=== PATIENT | female | born 2000 | race Caucasian/White ===

== ENCOUNTER 2024-06-05 17:00 | Inpatient (IN) | payer BC, SELFPAY ==
[2024-06-05 13:09] VITALS: BP 139/77
[2024-06-05 13:43] LABS: Hematocrit 39.3 % (37.0-47.0); Mean Corp Hgb Conc. 35.6 g/dL (33.0-37.0); Mean Corpuscular Hgb 29.1 pg (27.0-31.0); Mean Corpuscular Volume 81.7 fL (81.0-99.0); Mean Platelet Volume 8.9 fL (7.4-10.4); Platelet Count 198 10^3/uL (130-400); Red Blood Cell Count 4.81 10^6/uL (4.20-5.40); Red Cell Dist. Width 13.3 % (11.5-14.5); White Blood Cell Count 9.1 10^3/uL (4.8-10.8)
[2024-06-05 13:51] LABS: AST (SGOT) 610 U/L (14-36); Albumin 4.9 g/dl (3.5-5.0); Alkaline Phosphatase 462 U/L (38-126); Blood Urea Nitrogen 9 mg/dl (7-17); Carbon Dioxide 17 mmol/L (22-30); Chloride 103 mmol/L (98-107); Glucose 95 mg/dl (70-99); Lipase 100 U/L (23-300); Sodium 137 mmol/L (135-145); Total Bilirubin 5.8 mg/dl (0.2-1.3); Total Protein 8.5 g/dl (6.3-8.2); eGFR > 60.00
[2024-06-05 13:55] LABS: % Basophils 0.9 % (0-2); % Immature Granulocytes 1.2 % (0-0.5); % Lymphocytes 60.2 % (20.5-51.1); % Monocytes 4.2 % (1.7-9.3); % Neutrophils 33.5 % (42.2-75.2); Absolute Basophils 0.1 10^3/uL (0-0.2); Absolute Immature Granulocytes 0.1 10^3/uL (0-0.05); Absolute Lymphocytes 5.5 10^3/uL (1.2-3.4); Absolute Monocytes 0.4 10^3/uL (0.1-0.6); Absolute Neutrophils 3.1 10^3/uL (1.4-6.5); Nucleated Red Blood Cells % 0 %
--- NOTE | 2024-06-05 14:21 | ED.GENMED ---
History of Present Illness
General
Chief Complaint: Abdominal Pain
Source: patient
Exam Limitations: none
Time Seen by Provider: 06/05/24 14:05
History of Present Illness
History of Present Illness:
See MDM
Past History
Past History
ED Past Medical History: Psychiatric
ED Past Surgical History: None
Social History
Tobacco: Non-smoker
Alcohol: None
Phy Exam
Physical Exam
Physical Exam:
See MDM
Course
Orders/Labs/Results
Orders:
Orders
06/05/24 13:25
Complete Blood Count/With Diff Urgent
Comprehensive Metabolic Panel Urgent
Lipase Urgent
06/05/24 14:19
0.9% Sodium Chloride 1000 ml [Nss] 1,000 ml IV BOLUS
Ketorolac [Toradol] 30 mg IV NOW STA
Ondansetron Injectable [Zofran] 4 mg IV NOW STA
US Abdomen Complete/Upper Urgent
Comment:
Reason For Exam: RUQ pain
Abnormal Lab Results
06/05/24
13:25
Abs Immat Gran (auto) 0.1 H 10^3/uL
(0-0.05)
Absolute Lymphs (auto) 5.5 H 10^3/uL
(1.2-3.4)
Immature Gran % 1.2 H %
(0-0.5)
Neutrophils % 33.5 L %
(42.2-75.2)
Lymphocytes % 60.2 H %
(20.5-51.1)
Carbon Dioxide 17 L mmol/L
(22-30)
Total Bilirubin 5.8 H mg/dl
(0.2-1.3)
AST 610 H* U/L
(14-36)
ALT 808 H* U/L
(0-35)
Alkaline Phosphatase 462 H U/L
(38-126)
Total Protein 8.5 H g/dl
(6.3-8.2)
06/05/24 13:25
06/05/24 13:25
Vital Signs
Initial and Last Documented VS:
Initial Vital Signs
Temp Pulse Resp BP Pulse Ox
99.2 F 105 16 139/77 99
06/05/24 13:09 06/05/24 13:09 06/05/24 13:09 06/05/24 13:09 06/05/24 13:09
Last Documented Vital Signs
Temp Pulse Resp BP Pulse Ox
99.2 F 105 16 139/77 99
06/05/24 13:09 06/05/24 13:09 06/05/24 13:09 06/05/24 13:09 06/05/24 13:09
MDM/Problems Addressed
Differential Diagnosis Includes:
HPI and MDM Narrative:
23-year-old female presenting for evaluation of abdominal pain. This has been ongoing for the past week or so. This is associate with nausea. She has noted dark urine. On my assessment, blood work has already been obtained showing elevated
bilirubin and LFTs. She denies excessive alcohol or Tylenol use. Given her abdominal pain and her LFTs, will obtain ultrasound with concern for acute calculus cholecystitis or possibly choledocholithiasis
Physical exam
General: Well appearing and non-toxic
HEENT: protecting airway
Neck: appears supple
CV: No evidence of cyanosis
Resp: No accessory muscle use
Abd: Non-distended. Mild right upper quadrant and right lower quadrant tenderness
Extremities: No deformities
Neuro: alert
Psych: Normal affect
Skin: Intact
Problems Addressed including Acute and Chronic Conditions affecting care:
1. Abdominal pain with elevated LFTs
Acuity: acute
Prognosis: stable
Details: Will obtain ultrasound
Updates
Ultrasound negative. Will admit for MRCP versus possible CT
Differential Diagnosis (but not limited to): Acute calculus cholecystitis, choledocholithiasis, acute appendicitis
Testing considered: CT abdomen/pelvis will obtain ultrasound first with concern for gallbladder pathology
Drug therapy (if applicable): OTC meds, please see d/c instruction regarding Rx drugs
Amount and/or Complexity of Data Reviewed
Clinical info obtained from: Patient
External data reviewed: N/A
Labs I independently reviewed (but not limited to): Elevated LFTs and bilirubin
Radiology: Ultrasound report reviewed
Pulse Ox: not hypoxic
EKG independently reviewed: N/A
Stripper Shovel Operator: N/A
Critical Care: N/A
Risk of Complication:
Social Determinants of health: Good social support
Discussed with other providers: Hospital
Escalation of Care includes Admit/Obs: Given the elevated LFTs and abdominal pain, will admit for further evaluate
Occasional wrong word or 'sound a like' substitutions may have occurred due to the inherent limitations of voice recognition software. Read the chart carefully and recognize, using context, where substitutions have occurred.
*Critical Care Note
Total Time (30-74mins, 75-104mins- exclusive of procedures): Not Applicable
ED Attending Note
-
Portions of this chart may have been created with voice recognition software.� Occasional wrong word or��sound alike� substitutions may have occurred due to the inherent limitations of voice recognition software.
Discharge Plan
Departure
Patient Disposition: Admit
Date of Disposition: 06/05/24
Time of Disposition: 16:00
Admit to: Med/Surg
Presentation/result/management discussed w/ accepting MD/DO: Hospitalist
Discharge Problem:
Elevated LFTs
Prescriptions:
No Action
acetaminophen [Tylenol] 325 mg Tablet
650 mg PO Q6HPRN PRN (Reason: mild pain)
sertraline 100 mg Tablet
100 mg PO QPM
ibuprofen [Advil] 200 mg Tablet
400 mg PO Q6HPRN PRN (Reason: mild pain)
Referrals:
Michelle Carter CRNP [Family Provider] -
Interventions
Interventions:
*Risk Screen - Suicide Last Done: 06/05/24 14:30
*General Assessment Last Done: 06/05/24 14:30
*Neglect/Abuse Screening Last Done: 06/05/24 14:30
*ED COVID-19 Vaccine History Last Done: 06/05/24 14:30
[facility] Assessment Last Done: 06/05/24 14:30
Discharge Date and Time
Print Language: GREENLANDIC
[2024-06-05 14:37] LABS: ALT (SGPT) 808 U/L (0-35)
[2024-06-05] MEDS: TORADOL 30 MG IV (14:38)
[2024-06-05] MEDS: NSS 1000 IV ×2 (14:38→20:45)
[2024-06-05] MEDS: ZOFRAN 4 MG IV ×2 (14:38→20:46)
--- NOTE | 2024-06-05 16:07 | HPS.HSE ---
Family Physician
-
Family Physician: AMADA Peter
Chief Complaint
-
Abdominal pain x 1 week with nausea
History of Present Illness
23-year-old female complaining lower abdominal pain starting last 06/25/2025 associated with low-grade fever 102 Tmax 101F. She reports she was taking Tylenol 1000 mg every 6 hours x 3 days totaling 4000 mg/day x 3 days along with Advil
200 mg 3 times daily. She reports initially she had abdominal pain in her lower abdomen that she contributed to having her. She had some slight nausea for which she took Pepto-Bismol on 06/26/2024. She states after 3 days her fever
went away and then the abdominal pain became a generalized pain with a full sensation. She states she was unable to keep down any solid foods and she has only been able to have sips of water for the past 2 days. She also reports he has been unable
to take her Zoloft as she has not was afraid to take it on an empty stomach. She denies alcohol use. She reports she uses medical marijuana vapes it for anxiety. She denies headache, sore throat, chest pain, palpitations, shortness of breath,
cough, diarrhea, raw foods. In the ER her labs are showing acute transaminitis.
Medical History
Past Medical History
Past Medical History: Reports Other
Additional Past Medical History:
Anxiety
Renee-Danlos syndrome
Past Surgical History: Reports Other
Additional Past Surgical History:
Right knee ligament repair x 2 right collateral ligament and patellar ligament right knee
[place] teeth extraction
Social History
Tobacco: Vaping
Alcohol: None
Drug: Marijuana (Vapes)
Personal: Single
Living: With Roomate
Family History
Family History: Other (Mother 50s valvular heart issue, father 60s alcohol abuse 2 sisters healthy living)
Allergies / Home Medications
Allergies reflects when Allergies were last updated in [facility].
Home Medications with original date entered in [facility]
Allergy/Medication List:
Allergies
Allergy/AdvReac Type Severity Reaction Status Date / Time
wasps Allergy Swelling Uncoded 06/05/24 13:08
Home Medications
acetaminophen 325 mg tablet (Tylenol) 650 mg PO Q6HPRN PRN mild pain 06/05/24
ibuprofen 200 mg tablet (Advil) 400 mg PO Q6HPRN PRN mild pain 06/05/24
sertraline 100 mg tablet 100 mg PO QPM 06/05/24
Review of Systems
-
History Source: Patient
A 12 point ROS was completed and negative except as noted: Yes
Constitutional: Reports Fever (1 week ago); Denies Chills
EENT: Denies Sore Throat or Runny Nose
Respiratory: Denies Cough or Trouble Breathing
Cardiac: Denies Chest Pain, Diaphoresis, Palpitations or Syncope
Abdomen/GI: Reports Abdominal Pain, Nausea and Vomiting; Denies Diarrhea, Constipated, Bloody Stools or Black Stools
: Denies Dysuria, Frequency, Flank Pain, Incontinence, Difficulty Voiding, Urgency or Bleeding
Musculoskeletal: Denies Joint Pain, Joint Swelling or Edema
Skin: Denies Itching or Rash
Neurological: Denies Dizzy, Headache or Weakness
Endocrine: Reports No Symptoms
Hematologic/Lymphatic: Reports No Symptoms
Psych: Reports Calm (To slightly anxious)
Physical Exam
Vital Signs
Vital Signs
Temp Pulse Resp BP Pulse Ox
99.2 F 105 16 139/77 99
06/05/24 13:09 06/05/24 13:09 06/05/24 13:09 06/05/24 13:09 06/05/24 13:09
Physical Exam
General: Conversant; No Pain, Fever or Chills
HEENT: NormoCephalic, Anicteric, Moist mucous membranes, PERRLA, Tolstoy Conjunctivae and No Ptosis
Respiratory: Clear; No Wheezes, Rales or Rhonchi
Cardiac: S1/S2 and Regular Rhythm; No Murmur, Rub, Gallop or Peripheral Edema
Breast: Deferred by me
GI: Soft, Non Distended, Normal Bowel Sounds, Tender (Slight tenderness left and right upper quadrants, no rebound tenderness) and No Hepatosplenomegaly
Rectal: Deferred by Provider
Musculoskeletal: No Clubbing, No Cyanosis and No Edema
Skin: Warm and Dry; No Rash
Neuro: AO x 3, No Motor Deficits, Nonfocal/grossly intact, Cranial Nerves Intact and No Sensory Deficits; No Slurred Speech, Facial Droop or Tremors
Psych: Calm
Laboratory Results
-
06/05/24 13:25
06/05/24 13:25
Laboratory Results
Total Bilirubin 5.8 mg/dl (0.2-1.3) H 06/05/24 13:25
AST 610 U/L (14-36) H* 06/05/24 13:25
ALT 808 U/L (0-35) H* 06/05/24 13:25
Alkaline Phosphatase 462 U/L (38-126) H 06/05/24 13:25
Lipase 100 U/L (23-300) 06/05/24 13:25
Data Reviewed
-
Ultrasound: Report Reviewed by me
Lab Data: Labs Reviewed by me
Impression/Plan
-
Impression/plan:
Admit to MedSurg
#Acute transaminitis with right upper quadrant abdominal pain concern for choledocholithiasis
-N.p.o.
-IV NSS 1 L given in ER, continue IV NSS 100 cc an hour
-IV Toradol given in ER will continue for pain
-IV Zofran as needed
-MRCP with and without contrast
-Check Tylenol level, INR, hCG, hepatitis panel, blood culture x 1
-IV Zosyn
-Consult GI
-Follow CBC, CMP
Abdominal ultrasound: 1. No evidence of cholelithiasis, gallbladder wall thickening or biliary tract dilatation.
2. Mild splenomegaly and borderline hepatomegaly.
3. Pancreas, abdominal aorta and IVC significantly obscured, most likely by overlying bowel gas.
#Anxiety
-cont Zoloft
-Patient uses medical marijuana
#Nicotine abuse
-Patient vapes
-Cessation advised
-Will apply nicotine patch
#History Renee-Danlos syndrome
-Ligament repairs to right knee x 2
DVT prophylaxis
SCDs
Full code
--- NOTE | 2024-06-05 17:09 | W.PN.UPDATE ---
Update Note
Progress Note Update
This is an addendum to the H&P written by Ally James on 06/05/2024.� Patient seen examined independently with TEACHER AIDE.
23-year-old female past medical history of Erlos Danlos, anxiety/depression presenting with generalized abdominal pain over the past week associate with nausea and vomiting and dark urine.� She had fever up to 101 a few days ago.
Tachycardic on examination.� Labs show transaminitis with hyperbilirubinemia.� Abdominal ultrasound without evidence of cholelithiasis, gallbladder wall thickening or biliary tract dilatation.� Concern for choledocholithiasis.� Check Hepatitis
serologies,�PT/INR, Tylenol level.� Clear liquid diet, Zosyn, MRCP, GI consulted.
[2024-06-05 17:25] VITALS: BMI 43.3
[2024-06-05 17:38] LABS: Acetaminophen < 10 ug/ml (10-30)
[2024-06-05 17:40] LABS: INR 1.11; PT 14.2 Sec (11.4-14.6)
[2024-06-05] MEDS: ZOSYN 50 IV ×2 (18:08→23:41)
[2024-06-05 18:42] LABS: HCG, Serum Qualitative Screen Negative
[2024-06-05 18:57] VITALS: BP 124/76; BMI 32.4
[2024-06-05] MEDS: TORADOL 10 MG IV (20:45)
[2024-06-05] MEDS: ZOLOFT PO (20:45)
--- NOTE | 2024-06-05 21:00 | PTCARENOTE ---
Receive pt from ER. Pt alert oriented X3, doesn't seem in distress. Pt oriented to the room, call moody within reach. Pt complains about nausea, headache and abd pain, but mostly bother by nausea and headache. VSS (T=97.3, HR=84, RR=18, GX=464/76,
SpO2=98% on RA). Zofran given for nausea and Toradol given for pain as per order, IVFs infusing. Will continue to monitor the pt.
[2024-06-05 23:00] VITALS: BP 118/70
[2024-06-06] MEDS: ZOSYN 50 IV ×3 (05:16→17:07)
[2024-06-06 07:00] VITALS: BP 97/54
[2024-06-06] MEDS: NSS 1000 IV ×2 (07:34→17:07)
[2024-06-06] MEDS: ZOFRAN 4 MG IV (08:06)
[2024-06-06 08:33] LABS: ALT (SGPT) 688 U/L (0-35); AST (SGOT) 627 U/L (14-36); Albumin 3.9 g/dl (3.5-5.0); Alkaline Phosphatase 383 U/L (38-126); Blood Urea Nitrogen 9 mg/dl (7-17); Calcium 8.9 mg/dl (8.4-10.2); Carbon Dioxide 15 mmol/L (22-30); Chloride 107 mmol/L (98-107); Estimated Creatinine Clearance 125 ml/min; Glucose 81 mg/dl (70-99); HDL Cholesterol 42 mg/dl; LDL Cholesterol, Calculated 102 mg/dl; Potassium 4.3 mmol/L (3.5-5.1); Sodium 141 mmol/L (135-145); Total Bilirubin 5.8 mg/dl (0.2-1.3); Total Cholesterol 173 mg/dl (50-199); Total Protein 7.3 g/dl (6.3-8.2); Triglyceride 146 mg/dl (10-149); Very Low Density Lipoprotein 29 mg/dl (0-30); eGFR > 60.00
[2024-06-06 08:38] LABS: % Basophils 0.9 % (0-2); % Eosinophils 0.1 % (0-6); % Lymphocytes 68.2 % (20.5-51.1); % Monocytes 5.5 % (1.7-9.3); % Neutrophils 24.3 % (42.2-75.2); Absolute Basophils 0.1 10^3/uL (0-0.2); Absolute Immature Granulocytes 0.1 10^3/uL (0-0.05); Absolute Lymphocytes 4.8 10^3/uL (1.2-3.4); Absolute Monocytes 0.4 10^3/uL (0.1-0.6); Absolute Neutrophils 1.7 10^3/uL (1.4-6.5); Hematocrit 37.9 % (37.0-47.0); Hemoglobin 13.1 g/dL (12.0-16.0); Mean Corp Hgb Conc. 34.6 g/dL (33.0-37.0); Mean Corpuscular Hgb 28.8 pg (27.0-31.0); Mean Corpuscular Volume 83.3 fL (81.0-99.0); Mean Platelet Volume 9.1 fL (7.4-10.4); Nucleated Red Blood Cells % 0 %; Platelet Count 158 10^3/uL (130-400); Red Blood Cell Count 4.55 10^6/uL (4.20-5.40); Red Cell Dist. Width 13.4 % (11.5-14.5); White Blood Cell Count 7.1 10^3/uL (4.8-10.8)
[2024-06-06 08:40] VITALS: BP 97/54
--- NOTE | 2024-06-06 09:09 | CON.GI ---
Addendum entered and electronically signed by Rachel Longoria DO 06/06/24 12:15:
patient seen and examined independently of AMADA. I agree with her note with my additions below.
Marisa is a 23yoF with hx of anxiety/depression on Zoloft only (since Sep), EDS, father with suspected alcoholic liver disease presents with 1 wk of intermittent fevers, malaise, mild nausea without vomiting, abdominal bloating and fullness, but no
significant pain admitted with mixed hepatocellular, cholestatic liver injury with a bili of 5.8.
Patient denies ever having abnormal LFTs in the past, but unsure if they've ever been checked.
Lost about 6lbs over the past week due to decreased appetite. No one else with any similar sickness. Denies any herbals, supplements other than vit D. Does vape nicotine and marijuana.
No diarrhea. Due to malaise taking APAP/NSAIDs but tylenol level undetectable.
Denies any unusual bites, rashes.
Very rare alcohol.
U/S done shows no ductal dil. Was given empiric zosyn now.
Coags normal, no leukocytosis.
Overall - mixed liver injury with normal coags and minimal pain and normal U/S
-- sounds viral, less likely CBD stone
-- MRI/MRCP
-- hepatitis and mono testing
-- if those are negative would proceed to more extensive liver workup
-- daily MELD labs
-- diet as tolerated after MRI done
- -avoid APAP or other hepatotoxic medications
Original Note:
Consultation
-
Date/Time Consultation Requested: 06/05/24 @ 16:46
Date/Time Consultation Performed: 06/06/24 @ 09:00
Requesting Provider: AMADA Mcdaniel
Performing Provider: AMADA Javier; Dr. Rachel Longoria
Reason for Consultation: Acute transaminitis, hyperbilirubinemia
Medical History
Chief Complaint / HPI
Chief Complaint: abdominal pain, nausea
History of Present Illness:
The patient is a 23-year-old female with a past medical history significant for anxiety, depression, Renee-Danlos syndrome, who presents to the emergency room with complaints of abdominal pain, fevers, and nausea, which we are being asked to
evaluate for. The patient reports that for the last week she had not been feeling well. She was having fevers and chills and thought maybe she had COVID although testing was negative. The last 3 days she has had nausea persistently without
vomiting and abdominal pain generalized throughout her abdomen. She notes that she has not been eating and drinking as well given her ongoing symptoms, therefore has been mildly constipated. She denies any congestion or cough but has felt somewhat
short of breath. She also noticed that her urine was a dark color, but did not notice any jaundice or yellowing of her eyes. She denies any unintentional weight loss, chest pain, heartburn, or reflux symptoms. She has been using Advil/ibuprofen
and alternating with Tylenol to control her fever and pain symptoms. She does note that in August she saw her PCP for persistent hiccups and was placed on acid reducing medications but ultimately did not find a solution or cause for this. She
does report daily marijuana use for her anxiety. She reports very rare alcohol use she denies history of IV drug use. She denies any new medications or recent antibiotics. She denies any recent travel. She denies any history of liver disease.
She reports her father was a heavy alcoholic and did from liver disease. She denies any prior history of gastrointestinal diseases or problems. She has never had an endoscopy or colonoscopy. Upon labs in the ER, total bilirubin was 5.8, AST
16, ALT 808, alk phos 462, lipase 100, Tylenol less than 10. Ultrasound of the abdomen was unrevealing for any gallbladder etiology or biliary ductal dilation. She was placed on IV Zosyn given her intermittent fevers, made n.p.o., pending MRCP and
GI evaluation.
Past Medical History
Past Medical History: Psychiatric (Anxiety/depression) and Other (Renee-Danlos syndrome)
Past Surgical History: Orthopedic (Multiple knee surgeries for ligament repair) and Other ([place] teeth extraction)
Social History
Tobacco: Vaping
Alcohol: Other (Rare alcohol use)
Drug: Marijuana (Medical)
Living: With Roomate
Family History
Family History: Other (Father of alcoholic liver disease)
Allergies / Home Medications
Allergy/AdvReac Type Severity Reaction Status Date / Time
wasps Allergy Swelling Uncoded 06/05/24 13:08
�Medication �Instructions �Recorded
acetaminophen 325 mg tablet 650 mg PO Q6HPRN PRN mild pain 06/05/24
(Tylenol)
ibuprofen 200 mg tablet (Advil) 400 mg PO Q6HPRN PRN mild pain 06/05/24
sertraline 100 mg tablet 100 mg PO QPM 06/05/24
Review of Systems
-
History Source: Patient
Constitutional: Reports Fever and Chills
EENT: Reports No Symptoms
Respiratory: Reports Other (Shortness of breath)
Cardiac: Reports No Symptoms
Abdomen/GI: Reports Abdominal Pain and Nausea
: Reports Dark Urine
Musculoskeletal: Reports No Symptoms
Skin: Reports No Symptoms
Neurological: Reports No Symptoms
Endocrine: Reports No Symptoms
Hematologic/Lymphatic: Reports No Symptoms
Vital Signs
Temp Pulse Resp BP Pulse Ox
98.2 F 69 16 97/54 99
06/06/24 07:00 06/06/24 07:00 06/06/24 07:00 06/06/24 07:00 06/06/24 07:00
Physical Exam
Exam
General: Well Developed, Well Nourished and No Apparent Distress
HEENT: Normocephalic, Anicteric and Atraumatic
Respiratory: Clear
Cardiac: S1/S2 and Regular Rhythm
Breast: Deferred by me
GI: Soft, Non Distended, Normal Bowel Sounds and Tender (RUQ/RLQ)
Rectal: Deferred by Provider
Musculoskeletal: No Edema
Skin: Warm, Dry and Other (pale appearing, no jaundice)
Neuro: Awake, Alert and Oriented
Psych: Calm
Results
WBC 7.1 10^3/uL (4.8-10.8) 06/06/24 07:46
Hgb 13.1 g/dL (12.0-16.0) 06/06/24 07:46
Hct 37.9 % (37.0-47.0) 06/06/24 07:46
MCV 83.3 fL (81.0-99.0) 06/06/24 07:46
Plt Count 158 10^3/uL (130-400) D 06/06/24 07:46
Absolute Neuts (auto) 1.7 10^3/uL (1.4-6.5) 06/06/24 07:46
PT 14.2 Sec (11.4-14.6) 06/05/24 17:23
INR 1.11 06/05/24 17:23
Sodium 141 mmol/L (135-145) 06/06/24 07:46
Potassium 4.3 mmol/L (3.5-5.1) 06/06/24 07:46
Chloride 107 mmol/L (98-107) 06/06/24 07:46
Carbon Dioxide 15 mmol/L (22-30) L 06/06/24 07:46
BUN 9 mg/dl (7-17) 06/06/24 07:46
Creatinine 0.9 mg/dL (0.6-1.0) 06/06/24 07:46
Calcium 8.9 mg/dl (8.4-10.2) 06/06/24 07:46
Total Bilirubin 5.8 mg/dl (0.2-1.3) H 06/06/24 07:46
AST 627 U/L (14-36) H* 06/06/24 07:46
ALT 688 U/L (0-35) H* 06/06/24 07:46
Alkaline Phosphatase 383 U/L (38-126) H 06/06/24 07:46
Lipase 100 U/L (23-300) 06/05/24 13:25
Hepatitis A Ab Total Cancelled 06/05/24 17:23
Hep Bs Antibody Cancelled 06/05/24 17:23
Hepatitis C Antibody Cancelled 06/05/24 17:23
Diagnostic Image Results:
06/05/24 Us abdomen: No evidence of cholelithiasis, gallbladder wall thickening or biliary tract dilatation. Mild splenomegaly and borderline hepatomegaly. Pancreas, abdominal aorta and IVC significantly obscured, most likely by overlying bowel gas.
Prior GI Procedures:
EGD: none
Colonoscopy: none
Assessment / Plan
-
The patient is a 23-year-old female with a past medical history significant for anxiety, depression, Renee-Danlos syndrome, who presents to the emergency room with complaints of abdominal pain, fevers, and nausea, found to have significantly
elevated liver enzymes concerning for possible choledocholithiasis, although with unrevealing ultrasound of the abdomen. She has had ongoing systems, feeling unwell for the past week with nausea and abdominal pain the last 3 days with associated
fevers and chills. She has no history of liver disease or gallbladder disease. She had been taking [id number] NSAIDs and Tylenol for her symptoms. She denies alcohol use. MRCP pending this morning. Her liver enzymes are persistently
elevated.
Problem list:
-Elevated LFT
-Right upper quadrant pain
-Nausea
-Fevers
-Chronic medical marijuana use for anxiety
Other pertinent medical history:
-Renee-Danlos syndrome
-Anxiety/depression on sertraline
Recommendations:
-Etiology of current symptoms possibly secondary to biliary etiology such as choledocholithiasis versus viral etiology versus other infectious etiology versus other.
-Agree with MRCP for further evaluation to rule out stone given her right upper quadrant pain and LFT pattern
-Will add Monospot and Juancarlos-Palomo virus given her fevers and viral type symptoms.
-Await hepatitis serologies
-Avoid hepatotoxins
-Trend LFTs
-Clear liquid, advance diet as tolerated
-IV antibiotics as per primary team with Ivette
-Continue supportive care
-Monitor for fevers
-Further management pending above
Data Reviewed
-
Ultrasound: Report Reviewed by me
-
-
Thank you for consultation and allowing me to participate in the patient's care. Please call the marketing sales consultant GI physician during the after hours with any questions or concerns.
--- NOTE | 2024-06-06 09:36 | W.PN.HOSP.TC ---
Today's Communication/Plan
-
see A/P
Assessment / Plan
Assessment / Plan
HPI: 23-year-old female past medical history of Erlos Danlos, anxiety/depression; p/w generalized abdominal pain for the past week associated with nausea, vomiting and dark urine.�She also had fever up to 101 a few days ago.
A/P:
# R sided abdominal pain
# transaminitis with hyperbilirubinemia.�
Abdominal ultrasound without evidence of cholelithiasis, gallbladder wall thickening or biliary tract dilatation.�
Since there is concern for choledocholithiasis/cholangitis (fever at home), check MRCP
follow blood culture, cont Zosyn,
GI consult
Follow hepatitis serologies, Check UDS
Cont clear liquid diet,
Cont IVF support
Tylenol level negative (checked due to reported history of recent excessive Tylenol use for abdominal pain)
# Anxiety
cont Zoloft
Patient uses medical marijuana
Check UDS
# Nicotine abuse
Patient vapes
Cessation advised
nicotine patch
# History Renee-Danlos syndrome
DVT prophylaxis: SCDs
Full code
DW pt's girlfriend at bedside
Anticipated Discharge: > 48 hours
Subjective/Interval History
-
Date of Service: June 06, 2024
Objective Data
-
Labs:
Laboratory Results
06/06/24
07:46
WBC 7.1
Hgb 13.1
Hct 37.9
Plt Count 158 D
Sodium 141
Potassium 4.3
Chloride 107
Carbon Dioxide 15 L
BUN 9
Creatinine 0.9
Glucose 81
Calcium 8.9
Total Bilirubin 5.8 H
AST 627 H*
ALT 688 H*
Alkaline Phosphatase 383 H
Vital Signs:
Vital Signs
Temp Pulse Resp BP Pulse Ox
36.8 C 69 16 97/54 99
06/06/24 07:00 06/06/24 07:00 06/06/24 07:00 06/06/24 07:00 06/06/24 07:00
I&O
06/05/24 06/06/24 06/07/24
06:59 06:59 06:59
Intake Total 900 / 900 480 / 480
Balance 900 / 900 480 / 480
Review of Systems
-
Abdomen/GI: Reports Abdominal Pain (diffuse) and Nausea; Denies Vomiting
Physical Exam
-
General: Well Developed, Well Nourished, No Apparent Distress, Comfortable and Conversant; Negative Respiratory Distress
HEENT: Normocephalic, Atraumatic, Nose Appears Normal and Ears Appear Normal; Negative Oxygen
Respiratory: Clear to Auscultation and Non Labored Respirations; Negative Accessory Resp Muscle Use
Cardiac: Regular Rhythm and S1/S2
GI: Soft, Nontender, Nondistended and Normal Bowel Sounds
Skin: Warm and Dry
Neuro: Awake, Alert, Oriented and AO x 3
Psych: Calm and Intact Judgement/Insight
Data Reviewed
-
Ultrasound: Report Reviewed by me
Labs: Labs Reviewed by me
[2024-06-06 09:51] LABS: Absolute Neutrophils -Man Diff 1.7 10^3/uL (1.4-6.5); Band Neutrophils 3 % (0-3); Lymphocytes 63 % (20-51); Segmented Neutrophils 21 % (42-75)
[2024-06-06 09:52] LABS: Atypical Lymphocytes 7 %; Monocytes 6 % (2-9); Platelets Checked YES
[2024-06-06 09:53] LABS: Normal RBC Morphology Yes
[2024-06-06 09:54] LABS: Total Cells Counted 100
[2024-06-06] MEDS: PROTONIX IV 40 MG IV (09:56)
[2024-06-06] MEDS: NSS (PRESERVATIVE FREE) 10 ML IV (09:56)
[2024-06-06] MEDS: COMPAZINE 5 MG IV (12:22)
[2024-06-06 14:11] LABS: Monotest Positive (Negative)
[2024-06-06 15:00] VITALS: BP 108/62
--- NOTE | 2024-06-06 15:00 | PTCARENOTE ---
Assumed care of patient after prior RN left shift due to illness. Patient's assessment unchanged from prior.
Patient expressed frustration over MRI delay. Currently deciding to stay however considering leaving for another hospital with better MRI capabilities.
--- NOTE | 2024-06-06 15:22 | CM ---
Addendum entered by Александр Galdamez 06/06/24 15:32:
OBS reviewed, placed on chart.
Original Note:
CM following re: discharge planning.
Reviewed pt's chart, met with pt.
Pt is a 23 year old female, admitted with primary dx of R sided abdominal pain.
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
PCP: Michelle Young
Pharmacy: [facility].
d/c plan: home with anticipated no needs.
CM will follow with discharge plan updates as hospitalization progresses
[2024-06-06] MEDS: ZOLOFT 100 MG PO (17:07)
[2024-06-06 17:41] LABS: Amphetamines Negative (Negative); Barbiturates Negative (Negative); Benzodiazepines Negative (Negative); Buprenorphine Negative (Negative); Cocaine Negative (Negative); Marijuana Positive (Negative); Methadone Negative (Negative); Methamphetamines Negative (Negative); Opiates Negative (Negative); Phencyclidine Negative (Negative); Tricyclic Antidepressants Negative (Negative)
[2024-06-06] MEDS: TORADOL 10 MG IV (22:43)
[2024-06-06 23:30] VITALS: BP 99/57
[2024-06-07] MEDS: ZOSYN 50 IV ×2 (00:25→06:01)
[2024-06-07] MEDS: NSS 1000 IV ×2 (04:40→17:23)
[2024-06-07 07:16] VITALS: BP 97/57
[2024-06-07 08:16] LABS: Hematocrit 35.3 % (37.0-47.0); Hemoglobin 12.1 g/dL (12.0-16.0); Mean Corp Hgb Conc. 34.3 g/dL (33.0-37.0); Mean Corpuscular Hgb 28.7 pg (27.0-31.0); Mean Corpuscular Volume 83.8 fL (81.0-99.0); Mean Platelet Volume 8.9 fL (7.4-10.4); Platelet Count 158 10^3/uL (130-400); Red Blood Cell Count 4.21 10^6/uL (4.20-5.40); Red Cell Dist. Width 13.6 % (11.5-14.5); White Blood Cell Count 6.8 10^3/uL (4.8-10.8)
[2024-06-07 08:23] LABS: ALT (SGPT) 646 U/L (0-35); Albumin 3.8 g/dl (3.5-5.0); Alkaline Phosphatase 376 U/L (38-126); Blood Urea Nitrogen 7 mg/dl (7-17); Calcium 8.8 mg/dl (8.4-10.2); Carbon Dioxide 18 mmol/L (22-30); Chloride 105 mmol/L (98-107); Direct Bilirubin 3.4 mg/dl (0.0-0.4); Estimated Creatinine Clearance > 125 ml/min; Glucose 78 mg/dl (70-99); Potassium 3.8 mmol/L (3.5-5.1); Sodium 138 mmol/L (135-145); Total Bilirubin 4.7 mg/dl (0.2-1.3); Total Protein 6.9 g/dl (6.3-8.2); eGFR > 60.00
[2024-06-07 08:27] LABS: AST (SGOT) 496 U/L (14-36)
[2024-06-07] MEDS: PROTONIX IV 40 MG IV (08:37)
[2024-06-07] MEDS: NSS (PRESERVATIVE FREE) 10 ML IV (08:37)
[2024-06-07 09:28] LABS: Absolute Neutrophils -Man Diff 1.5 10^3/uL (1.4-6.5); Atypical Lymphocytes 11 %; Band Neutrophils 0 % (0-3); Lymphocytes 56 % (20-51); Metamyelocytes 1 % (-); Monocytes 8 % (2-9); Myelocytes 1 % (-); Segmented Neutrophils 23 % (42-75)
[2024-06-07 09:29] LABS: Platelets Checked YES
[2024-06-07 09:30] LABS: Normal RBC Morphology Yes
[2024-06-07 09:31] LABS: Total Cells Counted 100
--- NOTE | 2024-06-07 09:45 | W.PN.HOSP.TC ---
Today's Communication/Plan
-
see A/P
Assessment / Plan
Assessment / Plan
HPI: 23-year-old female past medical history of Erlos Danlos, anxiety/depression; p/w generalized abdominal pain for the past week associated with nausea, vomiting and dark urine.�She also had fever up to 101 a few days ago.
A/P:
# R sided abdominal pain
# transaminitis with hyperbilirubinemia.
Abdominal ultrasound without evidence of cholelithiasis, gallbladder wall thickening or biliary tract dilatation.�
Since there is concern for choledocholithiasis/cholangitis (fever at home), check MRCP
blood culture negative
stop further Zosyn and observe temp/WBC
GI on board
Monospot positive, pt informed
Follow hepatitis serologies,
UDS noted to be positive for marijuana
Cont clear liquid diet,
Cont IVF support
Tylenol level negative (checked due to reported history of recent excessive Tylenol use for abdominal pain)
# Anxiety
cont Zoloft
Patient uses medical marijuana
# Nicotine abuse
Patient vapes
Cessation advised
nicotine patch
# History Renee-Danlos syndrome
DVT prophylaxis: SCDs
Full code
DW pt's girlfriend at bedside
Anticipated Discharge: 24 - 48 hours
Subjective/Interval History
-
Date of Service: June 07, 2024
Objective Data
-
Labs:
Laboratory Results
06/07/24
07:13
WBC 6.8
Hgb 12.1
Hct 35.3 L
Plt Count 158
PT 14.0
INR 1.10
Sodium 138
Potassium 3.8
Chloride 105
Carbon Dioxide 18 L
BUN 7
Creatinine 0.8
Glucose 78
Calcium 8.8
Total Bilirubin 4.7 H
AST 496 H
ALT 646 H*
Alkaline Phosphatase 376 H
Vital Signs:
Vital Signs
Temp Pulse Resp BP Pulse Ox
36.6 C 76 16 97/57 98
06/07/24 07:16 06/07/24 07:16 06/07/24 07:16 06/07/24 07:16 06/07/24 07:16
I&O
06/06/24 06/07/24 06/08/24
06:59 06:59 06:59
Intake Total 900 / 900 2160 / 2160
Balance 900 / 900 2160 / 2160
Review of Systems
-
All other systems: Reviewed and negative
Physical Exam
-
General: Well Developed, Well Nourished, No Apparent Distress, Comfortable and Conversant; Negative Respiratory Distress
HEENT: Normocephalic, Atraumatic, Nose Appears Normal and Ears Appear Normal; Negative Oxygen
Respiratory: Clear to Auscultation and Non Labored Respirations; Negative Accessory Resp Muscle Use
Cardiac: Regular Rhythm and S1/S2
GI: Soft, Nontender, Nondistended and Normal Bowel Sounds
Skin: Warm and Dry
Neuro: Awake, Alert, Oriented and AO x 3
Psych: Calm and Intact Judgement/Insight
Data Reviewed
-
Labs: Labs Reviewed by me and Discussed with Patient
--- NOTE | 2024-06-07 12:28 | W.PN.GI.CBS2 ---
Today's Communication / Plan
-
-- feed her, supportive care positive mono
-- discussed with hospitalist. DC antibiotics
Assessment / Plan
-
The patient is a 23-year-old female with a past medical history significant for anxiety, depression, Renee-Danlos syndrome, who presents to the emergency room with complaints of abdominal pain, fevers, and nausea, found to have significantly
elevated liver enzymes concerning for possible choledocholithiasis, although with unrevealing ultrasound of the abdomen. She has had ongoing systems, feeling unwell for the past week with nausea and abdominal pain the last 3 days with associated
fevers and chills. She has no history of liver disease or gallbladder disease. She had been taking [id number] NSAIDs and Tylenol for her symptoms. She denies alcohol use. MRCP pending this morning. Her liver enzymes are persistently
elevated.
Problem list:
-Elevated LFT
-Right upper quadrant pain
-Nausea
-Fevers
-Chronic medical marijuana use for anxiety
Other pertinent medical history:
-Renee-Danlos syndrome
-Anxiety/depression on sertraline
Recommendations:
-Etiology of current symptoms possibly secondary to biliary etiology such as choledocholithiasis versus viral etiology versus other infectious etiology versus other.
-Agree with MRCP for further evaluation to rule out stone given her right upper quadrant pain and LFT pattern
-Will add Monospot and Juancarlos-Palomo virus given her fevers and viral type symptoms.
-Await hepatitis serologies
-Avoid hepatotoxins
-Trend LFTs
-Clear liquid, advance diet as tolerated
-IV antibiotics as per primary team with Ivette
-Continue supportive care
-Monitor for fevers
-Further management pending above
06/07/24 -trend LFTs, avoid hepatotoxic medications
Now in the setting of newly diagnosed mono, that explains her fatigue her symptoms and her LFTs
It is less common to have significant elevation in total bilirubin but it is not unheard of. Since her ultrasounds showed very normal gallbladder and bile ducts would not push for MRCP at this time.
Stop antibiotics
Change to low residue diet since she has fullness but not because of GI issues
Awaiting hepatitis serologies
Subjective
Subjective
Date of Service: June 07, 2024
Marisa has fatigue and fullness but no significant pain.
Objective
Data Reviewed
Laboratory Data:
Laboratory Results
06/07/24 07:13
06/07/24 07:13
Laboratory Results
PT 14.0 Sec (11.4-14.6) 06/07/24 07:13
INR 1.10 06/07/24 07:13
Total Bilirubin 4.7 mg/dl (0.2-1.3) H 06/07/24 07:13
AST 496 U/L (14-36) H 06/07/24 07:13
ALT 646 U/L (0-35) H* 06/07/24 07:13
Alkaline Phosphatase 376 U/L (38-126) H 06/07/24 07:13
Lipase 100 U/L (23-300) 06/05/24 13:25
Vital Signs and I&O:
Vital Signs
Temp Pulse Resp BP Pulse Ox
97.9 F 76 16 97/57 98
06/07/24 07:16 06/07/24 07:16 06/07/24 07:16 06/07/24 07:16 06/07/24 07:16
I&O
06/06/24 06/07/24 06/08/24
06:59 06:59 06:59
Intake Total 900 / 900 2160 / 2160
Balance 900 / 900 2160 / 2160
Physical Exam
Physical Exam
HEENT: Other (Mildly icteric)
Cardiology: Normal Sinus Rhythm
Pulmonary: Clear
GI: Soft and Non Tender
Extremities: No Edema
Neuro: Non Focal
[2024-06-07 16:15] VITALS: BP 129/78
[2024-06-07] MEDS: ZOLOFT 100 MG PO (17:24)
--- NOTE | 2024-06-07 18:08 | PTCARENOTE ---
Pt was transferred to room 423. report was given to DARION Dorantes.
--- NOTE | 2024-06-07 18:10 | PTCARENOTE ---
Patient received to room 423 and oriented to room. Call moody in reach. Extra blanket provided per patient request.
[2024-06-07 23:27] VITALS: BP 106/67
[2024-06-08] MEDS: NSS IV ×2 (04:17→06:30)
[2024-06-08 07:35] VITALS: BP 106/68
[2024-06-08 07:46] LABS: Hematocrit 34.9 % (37.0-47.0); Hemoglobin 12.3 g/dL (12.0-16.0); Mean Corp Hgb Conc. 35.2 g/dL (33.0-37.0); Mean Corpuscular Hgb 29.9 pg (27.0-31.0); Mean Corpuscular Volume 84.9 fL (81.0-99.0); Platelet Count 176 10^3/uL (130-400); Red Blood Cell Count 4.11 10^6/uL (4.20-5.40); Red Cell Dist. Width 13.5 % (11.5-14.5); White Blood Cell Count 8.9 10^3/uL (4.8-10.8)
[2024-06-08 08:03] VITALS: BP 106/68
[2024-06-08 08:11] LABS: % Basophils 1.1 % (0-2); % Eosinophils 0.1 % (0-6); % Immature Granulocytes 1.1 % (0-0.5); % Lymphocytes 74.7 % (20.5-51.1); % Monocytes 5.3 % (1.7-9.3); % Neutrophils 17.7 % (42.2-75.2); Absolute Basophils 0.1 10^3/uL (0-0.2); Absolute Immature Granulocytes 0.1 10^3/uL (0-0.05); Absolute Lymphocytes 6.7 10^3/uL (1.2-3.4); Absolute Monocytes 0.5 10^3/uL (0.1-0.6); Absolute Neutrophils 1.6 10^3/uL (1.4-6.5); Nucleated Red Blood Cells % 0 %
[2024-06-08 08:26] LABS: ALT (SGPT) 575 U/L (0-35); AST (SGOT) 411 U/L (14-36); Albumin 3.7 g/dl (3.5-5.0); Alkaline Phosphatase 423 U/L (38-126); Blood Urea Nitrogen 5 mg/dl (7-17); Calcium 8.7 mg/dl (8.4-10.2); Carbon Dioxide 22 mmol/L (22-30); Chloride 104 mmol/L (98-107); Estimated Creatinine Clearance > 125 ml/min; Glucose 77 mg/dl (70-99); Sodium 139 mmol/L (135-145); Total Bilirubin 3.1 mg/dl (0.2-1.3); Total Protein 6.9 g/dl (6.3-8.2); eGFR > 60.00
--- NOTE | 2024-06-08 09:18 | W.PN.HOSP.TC ---
Today's Communication/Plan
-
Pelvic MRI. GERMAN PROFESSOR consult.
Assessment / Plan
Assessment / Plan
Physical exam:
General: Acutely ill and No Apparent Distress
HEENT: Normocephalic, Atraumatic and Moist Mucous Membranes
Respiratory: Clear to Auscultation; Negative Wheezes, Rales or Rhonchi
Cardiac: Regular Rhythm and S1/S2
GI: Soft, mild tender and Nondistended
Musculoskeletal: No Clubbing, No Cyanosis and No Edema
Neuro: Awake, Alert and Oriented
Psych: Calm
A/P:
Infectious mononucleosis:
Monospot positive
Supportive care
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
Diet started by GI
Trend LFTs
GI input appreciated
Large cystic structure in the abdomen/pelvis, concerns for ovarian malignancy:
Plan for MRI of the pelvic area
GERMAN PROFESSOR consult-discussed with GERMAN PROFESSOR via [place] text today
Will order tumor markers including Ca125, inhibin, LDH, AFP ,beta HCG, estradiol and testosterone levels.
Depression anxiety:
On sertraline
Renee-Danlos syndrome:
Noted history
DVT prophylaxis:
SCDs
CODE STATUS:
Full code
Total time spent on today's encounter was 52 minutes which included time spent in counseling the patient/family regarding diagnosis and treatment plan as listed above, goals of care, and symptom management. Case was discussed with nursing staff,
specialists, and care coordinators/case management. All labs and imaging personally reviewed by me. Remainder the time spent in detailed review of previous records, lab data, imaging, and other medical provider documentation.
Anticipated Discharge: > 48 hours
Subjective/Interval History
-
Date of Service: June 08, 2024
Patient tells me her abdominal pain has improved but still has some discomfort on and off. Able to tolerate diet. Afebrile
Objective Data
-
Labs:
Laboratory Results
06/08/24
07:12
WBC 8.9
Hgb 12.3
Hct 34.9 L
Plt Count 176
Sodium 139
Potassium 4.0
Chloride 104
Carbon Dioxide 22
BUN 5 L
Creatinine 0.7
Glucose 77
Calcium 8.7
Total Bilirubin 3.1 H
AST 411 H
ALT 575 H*
Alkaline Phosphatase 423 H
Vital Signs:
Vital Signs
Temp Pulse Resp BP Pulse Ox
98.2 F 70 21 106/68 99
06/08/24 07:35 06/08/24 07:35 06/08/24 07:35 06/08/24 07:35 06/08/24 07:35
I&O
06/07/24 06/08/24 06/09/24
06:59 06:59 06:59
Intake Total 2160 / 2160 2950 / 2950
Balance 2160 / 2160 2950 / 2950
[2024-06-08] MEDS: PROTONIX IV 40 MG IV (09:32)
[2024-06-08] MEDS: NSS (PRESERVATIVE FREE) 10 ML IV (09:32)
[2024-06-08] MEDS: TORADOL 10 MG IV (09:38)
[2024-06-08 12:05] VITALS: BP 120/83
[2024-06-08 15:15] VITALS: BP 153/83
--- NOTE | 2024-06-08 15:38 | CM ---
CM reviewed chart, WASTE HANDLING TECHNICIAN consulted. CM will continue to follow for all discharge planning needs.
Plan; return home when stable, no needs.
--- NOTE | 2024-06-08 15:58 | W.PN.GI.CBS2 ---
Today's Communication / Plan
-
-- GI will sign off
Assessment / Plan
-
The patient is a 23-year-old female with a past medical history significant for anxiety, depression, Renee-Danlos syndrome, who presents to the emergency room with complaints of abdominal pain, fevers, and nausea, found to have significantly
elevated liver enzymes concerning for possible choledocholithiasis, although with unrevealing ultrasound of the abdomen. She has had ongoing systems, feeling unwell for the past week with nausea and abdominal pain the last 3 days with associated
fevers and chills. She has no history of liver disease or gallbladder disease. She had been taking [id number] NSAIDs and Tylenol for her symptoms. She denies alcohol use. MRCP pending this morning. Her liver enzymes are persistently
elevated.
Problem list:
-Elevated LFT
-Right upper quadrant pain
-Nausea
-Fevers
-Chronic medical marijuana use for anxiety
Other pertinent medical history:
-Renee-Danlos syndrome
-Anxiety/depression on sertraline
Recommendations:
-Etiology of current symptoms possibly secondary to biliary etiology such as choledocholithiasis versus viral etiology versus other infectious etiology versus other.
-Agree with MRCP for further evaluation to rule out stone given her right upper quadrant pain and LFT pattern
-Will add Monospot and Juancarlos-Palomo virus given her fevers and viral type symptoms.
-Await hepatitis serologies
-Avoid hepatotoxins
-Trend LFTs
-Clear liquid, advance diet as tolerated
-IV antibiotics as per primary team with Ivette
-Continue supportive care
-Monitor for fevers
-Further management pending above
06/07/24 -trend LFTs, avoid hepatotoxic medications
Now in the setting of newly diagnosed mono, that explains her fatigue her symptoms and her LFTs
It is less common to have significant elevation in total bilirubin but it is not unheard of. Since her ultrasounds showed very normal gallbladder and bile ducts would not push for MRCP at this time.
Stop antibiotics
Change to low residue diet since she has fullness but not because of GI issues
Awaiting hepatitis serologies
06/08/2024 -LFTs continue to improve. Likely all secondary to mono. Her fatigue and symptoms much improved
-- Fortunately her MRI was completed and a very large pelvic cyst was found 34 cm in diameter -I did show the pictures to the patient and her significant other
-- Gynecology has been consulted, her hepatitis serologies are still pending
--Patient should get follow-up LFT panel in 2 weeks to ensure they continue to come down and be followed until they normalize
-- GI will sign off. Please call with any questions
Subjective
Subjective
Date of Service: June 08, 2024
Patient feels much better today. Has more energy
Objective
Data Reviewed
Laboratory Data:
Laboratory Results
06/08/24 07:12
06/08/24 07:12
Laboratory Results
PT 14.0 Sec (11.4-14.6) 06/07/24 07:13
INR 1.10 06/07/24 07:13
Total Bilirubin 3.1 mg/dl (0.2-1.3) H 06/08/24 07:12
AST 411 U/L (14-36) H 06/08/24 07:12
ALT 575 U/L (0-35) H* 06/08/24 07:12
Alkaline Phosphatase 423 U/L (38-126) H 06/08/24 07:12
Lipase 100 U/L (23-300) 06/05/24 13:25
Vital Signs and I&O:
Vital Signs
Temp Pulse Resp BP Pulse Ox
98.3 F 101 21 153/83 96
06/08/24 15:15 06/08/24 15:15 06/08/24 15:15 06/08/24 15:15 06/08/24 15:15
I&O
06/07/24 06/08/24 06/09/24
06:59 06:59 06:59
Intake Total 2160 / 2160 2950 / 2950
Balance 2160 / 2160 2950 / 2950
Physical Exam
Physical Exam
HEENT: Other (Mildly icteric)
Cardiology: Normal Sinus Rhythm
GI: Soft, Non Distended and Non Tender
Extremities: No Edema
Neuro: Non Focal
--- NOTE | 2024-06-08 17:31 | CS.OBGYN ---
Consult Summary - CARD GRADER
-
Pt seen and examined. History obtained by pt. Pt's AMADO Otoole with pt in the room and during the exam. Consult dictated
23 y/o Go with no gyn physician history admitted to with abdominal pain and elevated LFTs.
While hospitalized pt's mono test did come back positive and her LFTs which were greatly elevated on admission are now trending downward. GI consulted on pt.
Electrocardiograph Operator consulted for 34 cm abd mass found on Abd MRI imaging
Surprisingly pt is nontender on her abdominal/pelvic exam today and pt looks well.
-MRI of her pelvic has been ordered but not done and ovarian tumor markers also have been ordered.
Will await the results of her imaging. When pt is ready to be d/javy from a medical perspective it is ok to do so.
As an outpt pt will need to see a gyn physician oncologist for further workup and surgery. I will help make those referrals to pt and help to expedite this for her. Pt would prefer a gyn physician oncologist at [place] because that is closer to where she lives.
Ok for surgery as an outpt given the fact there is no acute need at the moment. Likely pt will need to wait a few weeks for surgery until her LFTs come back down closer to normal.
[2024-06-08] MEDS: ZOLOFT 100 MG PO (17:58)
[2024-06-08 18:59] LABS: Hepatitis B Surface Antigen Negative (Negative)
[2024-06-08 19:16] LABS: Hepatitis B Surface Antibody Negative; Hepatitis C Antibody Negative (Negative)
[2024-06-08 19:39] LABS: Hepatitis A Antibody, Total Positive (Negative)
[2024-06-08 19:40] LABS: Hepatitis B Core Ab, Total Negative (Negative)
[2024-06-08 20:39] LABS: Hepatitis A IgM Antibody Negative (Negative)
[2024-06-08 23:24] VITALS: BP 121/75
[2024-06-09 07:00] VITALS: BP 120/77
--- NOTE | 2024-06-09 07:50 | PTCARENOTE ---
~22:00 Pt reported nausea and vomiting. Pt reported relief after vomiting. Pt reported using bathroom after vomiting and saw 'blood on the toilet paper after wiping myself.' Pt reported this was 'first time' seeing blood since admission. Pt reports
period was 'last week.' Pt denied 'spotting' between periods. Pt took a photo of the toilet paper. Based on the photo shown to this RN, blood is red smear. Hat placed in toilet. Pt instructed to notify RN if see blood again. Notified AMADA Dupree
[place]. No new orders at this time.
Throughout the night, pt notified RN once. No blood in urine. No blood noted on toilet paper. Pt instructed to continue urinating into hat and to notify RN if see blood again. AM RN updated. Plan of care ongoing.
--- NOTE | 2024-06-09 08:19 | W.PN.HOSP.TC ---
Today's Communication/Plan
-
Discharge planning today
Assessment / Plan
Assessment / Plan
Physical exam:
General: No Apparent Distress
HEENT: Normocephalic, Atraumatic and Moist Mucous Membranes
Respiratory: Clear to Auscultation; Negative Wheezes, Rales or Rhonchi
Cardiac: Regular Rhythm and S1/S2
GI: Soft, Non tender and Nondistended
Musculoskeletal: No Clubbing, No Cyanosis and No Edema
Neuro: Awake, Alert and Oriented
Psych: Calm
A/P:
Infectious mononucleosis:
Monospot positive
Supportive care
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
Diet started by GI
Trend LFTs
GI input appreciated
Large cystic structure in the abdomen/pelvis, concerns for ovarian malignancy:
Plan for MRI of the pelvic area--> confirm cystic mass
FORMING OPERATOR consult appreciated and they are okay for patient to be discharged and they will see her to coordinate with FORMING OPERATOR onc-surgery.
Ordered tumor markers including Ca125, inhibin, LDH, AFP ,beta HCG, estradiol and testosterone levels.
Depression anxiety:
On sertraline
Renee-Danlos syndrome:
Noted history
DVT prophylaxis:
SCDs
CODE STATUS:
Full code
Anticipated Discharge: Today
Subjective/Interval History
-
Date of Service: June 09, 2024
Patient denies abdominal pain nausea vomiting today. Tolerating diet
Objective Data
-
Labs:
Laboratory Results
06/09/24
06:00
WBC Pending
Hgb Pending
Hct Pending
Plt Count Pending
Sodium Pending
Potassium Pending
Chloride Pending
Carbon Dioxide Pending
BUN Pending
Creatinine Pending
Glucose Pending
Calcium Pending
Total Bilirubin Pending
AST Pending
ALT Pending
Alkaline Phosphatase Pending
Vital Signs:
Vital Signs
Temp Pulse Resp BP Pulse Ox
97.9 F 75 18 120/77 97
06/09/24 07:00 06/09/24 07:00 06/09/24 07:00 06/09/24 07:00 06/09/24 07:00
I&O
06/08/24 06/09/24 06/10/24
06:59 06:59 06:59
Intake Total 2950 / 2950 1300 / 1300
Output Total 150 / 150
Balance 2950 / 2950 1150 / 1150
[2024-06-09 08:38] LABS: Hematocrit 39.1 % (37.0-47.0); Hemoglobin 13.6 g/dL (12.0-16.0); Mean Corp Hgb Conc. 34.8 g/dL (33.0-37.0); Mean Corpuscular Hgb 29.3 pg (27.0-31.0); Mean Corpuscular Volume 84.3 fL (81.0-99.0); Platelet Count 197 10^3/uL (130-400); Red Blood Cell Count 4.64 10^6/uL (4.20-5.40); Red Cell Dist. Width 13.8 % (11.5-14.5); White Blood Cell Count 10.4 10^3/uL (4.8-10.8)
[2024-06-09] MEDS: PROTONIX IV 40 MG IV (08:53)
[2024-06-09] MEDS: NSS (PRESERVATIVE FREE) 10 ML IV (08:53)
[2024-06-09 09:24] LABS: ALT (SGPT) 545 U/L (0-35); AST (SGOT) 333 U/L (14-36); Albumin 4.3 g/dl (3.5-5.0); Alkaline Phosphatase 442 U/L (38-126); Blood Urea Nitrogen 6 mg/dl (7-17); Calcium 9.4 mg/dl (8.4-10.2); Carbon Dioxide 27 mmol/L (22-30); Chloride 102 mmol/L (98-107); Estimated Creatinine Clearance > 125 ml/min; Glucose 103 mg/dl (70-99); LDH 493 U/L (120-246); Potassium 3.8 mmol/L (3.5-5.1); Sodium 141 mmol/L (135-145); Total Bilirubin 2.5 mg/dl (0.2-1.3); Total Protein 7.8 g/dl (6.3-8.2); eGFR > 60.00
[2024-06-09] MEDS: TORADOL 10 MG IV (09:28)
[2024-06-09 09:37] LABS: CA 125 34.3 U/mL (0-35)
[2024-06-09 09:42] LABS: AFP Male/Tumor Marker 2.77 ng/ml
[2024-06-09 10:37] LABS: Beta HCG Quantitative < 2.39 mIU/ml
[2024-06-09 10:54] LABS: Testosterone, Total 21.8 ng/dl
[2024-06-09 11:09] LABS: Estradiol 201.9 pg/ml
--- NOTE | 2024-06-09 11:32 | W.DCSUMMARY ---
Discharge Summary
Discharge Data
Date of Admission: 06/05/24
Date of Discharge: 06/09/24
-
Pending Results: No
Hospital Course
Patient 23 years old female history of depression anxiety, Renee-Danlos syndrome, came into the hospital abdominal pain nausea and vomiting found to have elevated LFTs. GI consulted. She was given IV fluids and supportive care. She was positive
for mononucleosis. LFTs started to trend down. Ultrasound of the abdomen was reported normal followed by MRCP shows no evidence of biliary tree obstruction but did show a significant cystic lesion in the abdomen/pelvis. RN [facility] was consulted. She
underwent MRI of the pelvis that confirmed massive cystic lesion around 28 x 35 cm size concerning for ovarian malignancy. Patient abdominal pain subsided and she had been able to tolerate diet without any problems. She has remained
hemodynamically stable and afebrile. RN [facility] felt there was no need for any surgical intervention at the moment and from their standpoint she has been cleared for discharge and they will arrange to have her follow-up with [facility] oncologist as outpatient.
No other events were noticed. She will be discharged in stable condition today.
Discharge duration: 35 minutes
Discharge Plan
-
Patient Disposition: Home (Routine Discharge)
Discharge Diagnosis/Procedures: Elevated liver enzymes likely due to acute mononucleosis. Large ovarian cyst concerning for malignancy.
Condition: Good
Diet: As tolerated, Low Fat and Low Cholesterol
Activity: As tolerated
Driving Restrictions: As prior to admission
Blood Work: LFTs in 1 week with your PCP
Stand Alone Forms: Return to Work
Referrals:
Falguni Teague MD [Active] - in two to four weeks
Michelle Carter CRNP [Family Provider] - in less than 1 week
Rachel Longoria DO [Active] - in two to four weeks
Prescriptions:
Continued
sertraline 100 mg Tablet
100 mg PO QPM
ibuprofen [Advil] 200 mg Tablet
400 mg PO Q6HPRN PRN (Reason: mild pain)
Discontinued
acetaminophen [Tylenol] 325 mg Tablet
650 mg PO Q6HPRN PRN (Reason: mild pain)
Discharge Orders:
Discharge Patient (As Directed); Ordered 06/09/24
Ordered By: Nasir Peck
Discharge Date and Time
Discharge Date/Time: 06/09/24 16:35
Print Language: CANADIAN
--- NOTE | 2024-06-09 12:36 | CM ---
CM reviewed chart, met with patient, discussed plan for discharge today. Patient inquiring if she can have a return to work note and if she has any restrictions, TT to Hospitalist. Patient reports she has transportation home. CM will continue to
follow for all discharge planning needs.
Plan; home no needs.
[2024-06-09 15:00] VITALS: BP 116/82
== END 2024-06-09 16:35 | disposition home or self-care (01) | DRG 866 ==
LOC: 4 WEST ACU 17:00
PROVIDERS: Clinical Nurse Specialist Family Health; Emergency Medicine; Internal Medicine; Nurse Practitioner Family; ADMITTING PHYSICIAN Hospitalist; ATTENDING PHYSICIAN Hospitalist; CONSULT PHYSICIAN Internal Medicine; CONSULT PHYSICIAN Obstetrics & Gynecology Gynecology; EMERGENCY PHYSICIAN Student in an Organized Health Care Education/Training Program; FAMILY PHYSICIAN Nurse Practitioner Family
DX: B27.90 Infectious mononucleosis, unspecified without complication (principal); Q79.60 Ehlers-Danlos syndrome, unspecified; C56.2 Malignant neoplasm of left ovary; K80.50 Calculus of bile duct without cholangitis or cholecystitis without obstruction; F32.A Depression, unspecified; F41.9 Anxiety disorder, unspecified; N83.209 Unspecified ovarian cyst, unspecified side; F17.290 Nicotine dependence, other tobacco product, uncomplicated
CPT/HCPCS: 72197; 74183; 76700; 80053; 80061; 80143; 80306; 82105; 82248; 82670; 83615; 83690; 84403; 84702; 84703; 85025; 85027; 85610; 86161; 86304; 86308; 86665; 86704; 86706; 86708; 86709; 86803; 87040; 87340; 96361; 96365; 96375; 99284; 99406; A9575